=== PATIENT | male | born 1980 | race Two or more races ===

== ENCOUNTER 2021-03-05 16:07 | Emergency (ER) | payer SELFPAY ==
[~2021-03-05] VITALS: Ht 162.6 cm; Wt 72.7 kg
[2021-03-05] MEDS ORDERED: KETOROLAC 15 MG/ML VIAL. IVP ONE (16:45)
[2021-03-05] MEDS ORDERED: IV NORMAL SALINE 1000ML BAG 1,000 ML IV ONE (16:45)
[2021-03-05] MEDS ORDERED: ORPHENADRINE CITRATE 60 MG/2 ML VIAL. IV ONE (16:45)
--- NOTE | 2021-03-05 17:15 | PHYS DOC ---
Past Medical History Past Medical History: No Pertinent History Past Surgical History: No Surgical History Smoking Status: Never Smoker Alcohol Use: None Drug Use: None General Adult EDM: Chief Complaint: HEADACHE HPI: HPI: Patient is a 41 year old male who presents with headache. Onset is one week ago and corresponds with a great deal of outdoor work. The headache is located in the back of the head and radiates towards the front and is often accompanied with heart racing, shortness of breath, feeling hot, and nervousness. The headache is intermittent and reaches a 8/10 in pain. Sleep sometimes improves. Hard work worsens. Similar episode occurred 2 years ago and resolved with hospital visit and rehydration. Review of Systems: Review of Systems: Constitutional: Denies fever or chills Eyes: Denies redness or eye pain HENT: Denies nasal congestion or sore throat Respiratory: Denies cough or shortness of breath Cardiovascular: Denies chest pain; reports palpitations GI: Denies abdominal pain, nausea, or vomiting : Denies dysuria or hematuria Musculoskeletal: Denies back pain; reports neck pain Integument: Denies rash or skin lesions Neurologic: Denies focal weakness or sensory changes; reports headache Complete systems were reviewed and found to be within normal limits, except as documented in this note. Heart Score: C/O Chest Pain: N/A Current Medications: Current Medications Medications (Trade) Dose Ordered Sig/Machelle Start Time Stop Time Status Last Admin Dose Admin Ketorolac Tromethamine (Toradol 15mg Vial) 15 mg 1X ONCE 03/05/21 16:45 03/05/21 16:47 DC 03/05/21 17:01 15 MG Orphenadrine Citrate (Norflex) 60 mg 1X ONCE 03/05/21 16:45 03/05/21 16:47 DC 03/05/21 17:00 60 MG Sodium Chloride 1,000 ml @ 1,000 mls/hr 1X ONCE 03/05/21 16:45 03/05/21 17:44 03/05/21 17:01 1,000 MLS/HR Allergies: Allergies: Allergies Coded Allergies Type Severity Reaction Last Updated Verified No Known Drug Allergies 03/05/21 No Physical Exam: PE: Constitutional: Well developed, well nourished, no acute distress, non-toxic appearance HENT: Normocephalic, atraumatic Eyes: PERRL, EOMI, conjunctiva normal, no discharge, no nystagmus Neck: Normal range of motion, supple, paraspinal musculature tender to palpation. Lungs & Thorax: No respiratory distress, equal chest rise and fall Cardiovascular: Regular rate and rhythm, no murmurs Abdomen: Soft, no tenderness, BSx4 Skin: Warm, dry, no erythema, no rash Extremities: No tenderness, no edema Neurologic: Alert and oriented X 3, normal motor function, normal sensory function, no focal deficits noted Psychologic: Affect normal, judgment normal Current Patient Data: Vital Signs: Vital Signs Date Time Temp Pulse Resp B/P (MAP) Pulse Ox O2 Delivery O2 Flow Rate FiO2 03/05/21 16:21 98.7 85 18 183/93 97 Room Air 98.7 EKG: EKG: [] Radiology/Procedures: Radiology/Procedures: [] Course & Med Decision Making: Course & Med Decision Making Patient presents with headache. Concern for possible dehydration. Labs obtaine d and posted to chart. Hemoglobin elevated. IV fluid hydration given. Patient also noted to have paraspinal neck pain. Norflex provided. Patient reports interval improvement of symptoms. Patient stable for discharge with outpatient follow-up with PCP. Discussed findings and plan with patient and family, who acknowledge understanding and agreement. Gabriel Disclaimer: Gabriel Disclaimer: This electronic medical record was generated, in whole or in part, using a voice recognition dictation system. Departure Departure Impression: Primary Impression: Headache Qualified Codes: R51.9 - Headache, unspecified Additional Impression: Dehydration Disposition: HOME / SELF CARE / HOMELESS Condition: STABLE Patient Instructions: Dehydration, Adult, [id number], Headache, FAQs Additional Instructions: Increase fluid hydration. Take [id number] ibuprofen and/or Tylenol for pain or discomfort. Scripts Orphenadrine Citrate (ORPHENADRINE CITRATE) 100 Mg Tablet.er 100 MG PO BID PRN for MUSCLE PAIN, #14 TAB Prov: DONY DAVILA DO 03/05/21 DONY DAVILA DO Mar 05, 2021 17:15
[2021-03-05 17:34] LABS: CALCIUM 9.1 mg/dL (8.5-10.1); GFR 83.2; POTASSIUM 4.3 mmol/L (3.5-5.1)
[2021-03-05 17:40] LABS: ALBUMIN 4.1 g/dL (3.4-5.0); MAGNESIUM 2.4 mg/dL (1.8-2.4); TOTAL BILIRUBIN 0.8 mg/dL (0.2-1.0)
[2021-03-05 17:42] LABS: BASO % 1 % (0-3); EOS # 0.1 x10^3/uL (0.0-0.7); EOS % 1 % (0-3); HEMATOCRIT 53.1 % (39.0-53.0); HEMOGLOBIN 18.5 g/dL (13.0-17.5); LYMPH # 2.6 x10^3/uL (1.0-4.8); LYMPH % 29 % (24-48); MEAN CORPUSCULAR HEMOGLOBIN 32 pg (25-35); MEAN CORPUSCULAR HGB CONC 35 g/dL (31-37); MEAN CORPUSCULAR VOLUME 91 fL (79-100); MONO # 0.7 x10^3/uL (0.0-1.1); MONO % 8 % (0-9); NEUT # 5.5 x10^3/uL (1.8-7.7); NEUT % 62 % (31-73); PLATELET COUNT 223 x10^3/uL (140-400); RED BLOOD COUNT 5.82 x10^6/uL (4.30-5.70); RED CELL DISTRIBUTION WIDTH 12.9 % (11.5-14.5); WHITE BLOOD COUNT 8.9 x10^3/uL (4.0-11.0)
[2021-03-05 18:00] VITALS: BP 136/67
[2021-03-05] MEDS ORDERED: ORPH100T PO (18:07)
[2021-03-05 18:49] LABS: ALBUMIN/GLOBULIN RATIO 1.2 (1.0-1.7); TOTAL PROTEIN 7.6 g/dL (6.4-8.2)
== END 2021-03-05 18:26 | disposition home or self-care (01) ==
LOC: ER 16:07
DX: R51.9 Headache, unspecified (principal); E86.0 Dehydration; R00.0 Tachycardia, unspecified
CPT/HCPCS: 36415; 80053; 83735; 85025; 96361; 96374; 96375; 99284; J1885; J2360; J7030